=== PATIENT | female | born 1960 | race Caucasian/White ===

== ENCOUNTER 2021-08-26 14:33 | Outpatient (RCR) | payer BC, SELFPAY | END 2021-09-20 23:59 | disposition home or self-care (01) | LOC: CCIC 14:33 | PROVIDERS: PCP Physician Assistant Medical; Visit Provider Internal Medicine Hematology & Oncology | DX: C50.911 Malignant neoplasm of unspecified site of right female breast (principal); Z17.0 Estrogen receptor positive status [ER+]; Z87.891 Personal history of nicotine dependence | CPT/HCPCS: 99212; 99214; 99215 ==

== ENCOUNTER 2022-04-09 11:00 | Outpatient (RCR) | payer BC, SELFPAY | END 2022-09-09 23:59 | disposition home or self-care (01) | PROVIDERS: PCP Physician Assistant Medical; Visit Provider Family Medicine | DX: M85.80 Other specified disorders of bone density and structure, unspecified site (principal); Z51.89 Encounter for other specified aftercare | CPT/HCPCS: 97033; 97035; 97140; 97165; L3913 ==

== ENCOUNTER 2022-05-13 11:30 | Outpatient (RCR) | payer BC, SELFPAY ==
--- NOTE | 2022-01-13 14:43 | URNOTE ---
Received request for prior authorization for Zoledronic Acid (J3489). Per automated messeage at [facility], prior authorization is not required. Confirmation #[id number]
--- NOTE | 2022-01-18 11:25 | ONC.NURNOTE ---
Note in Dr. Mcginnis's folder to clarify if pt to receive Reclast or Zometa. Reclast discussed in her visit note; orders in for Zometa. Dental clearance has been obtained; pt sched 01/21.
[2022-01-21 11:34] LABS: Creatinine* 0.7 mg/dL (0.5-1.5); Estimated Glomerular Filt Rate 97 ml/min
[2022-01-21 11:35] LABS: Calcium* 9.6 mg/dL (8.4-10.6)
[2022-01-21 11:49] VITALS: BP 127/75; PULSE 92; RESP 16; TEMP 36.8; O2SAT 96
[2022-01-21] MEDS: ZOLEDRONIC ACID 4 MG in 0.9 % SODIUM CHLORIDE 100 ml 100 ML 420 MG IVPB (12:08)
--- NOTE | 2022-06-03 11:45 | URNOTE ---
Request received for authorization for Zoledronic Acid (Zometa) (J3489). Prior authorization is approved from 06/01/2022 to 12/27/2022 from [employer] Ref#[id number], on behalf on [employer].
== END 2022-07-04 23:59 | disposition home or self-care (01) ==
LOC: CCIC 11:30
PROVIDERS: PCP Physician Assistant Medical; Referring Provider Physician Assistant Medical; Visit Provider Internal Medicine Hematology & Oncology
DX: C50.911 Malignant neoplasm of unspecified site of right female breast (principal); Z17.0 Estrogen receptor positive status [ER+]; Z79.811 Long term (current) use of aromatase inhibitors; M85.80 Other specified disorders of bone density and structure, unspecified site; Z87.891 Personal history of nicotine dependence
CPT/HCPCS: 36415; 82310; 82565; 96374; 99212; 99214; J3489

== ENCOUNTER 2022-05-20 12:25 | Outpatient (CLI) | payer BC, SELFPAY | END 2022-05-20 12:26 | disposition home or self-care (01) | PROVIDERS: PCP Physician Assistant Medical; Visit Provider Dermatology | DX: Z79.631 Long term (current) use of antimetabolite agent (principal) | CPT/HCPCS: 80053 ==

== ENCOUNTER 2022-05-25 11:15 | Outpatient (RCR) | payer BC, SELFPAY ==
--- OUTSIDE RECORDS SUMMARY | 2021-08-14 09:48 | XMS_ITS | Continuity of Care Document ---
:1960 Author Allergies, Adverse Reactions, Alerts No known allergies Social History Smoking Status Status Start Date End Date Date of Observat ion Ex-smoker (finding) June 02, 2021 7:59am Additional Data Assigned Sex Female Problems Active Problems Medical Problem Onset Date Status Encounter for preoperative Active screening laboratory testing for COVID-19 virus Medications Medication Status Dose Units Route Directions Qty Days Start End Ins tructions Date Date Acetaminophen Active 1-2 TAB PO Every 6 15 June /Hydrocodone Hours as Bitart needed 2021 (Hydrocodone- 12:37pm Acetaminophen ) 5 Mg/325 Mg TAB Cephalexin Active 500 MG PO Four Times 7 Daily Diphenhydrami Active 0 PO Bedtime 1 ne Hcl (Sleep) (Benadryl) 25 Mg TAB Fluocinonide Active 1 NICK TOP Twice A Day 60 Ketoconazole Active 2 % EX (Topical) (Nizoral A-D) 1 % SHA Lactobacillus Active 1 TABLET PO Multiple Active 1 TAB PO Vitamin (Multi Vitamin) 1 Tab TAB Simvastatin Active 10 MG PO Bedtime 30 (Zocor) 10 Mg TAB Triamterene/H Active 1 CAP PO Daily 30 ctz Covid-19 Disconti 30 MCG IM Once 1 Decem[facility] (Sars-Cov-2) nued r , er Mrna Vir 2020 11, (Pfizer-Biont 1:01pm 2020 ech Covid-19) 1:02pm 30 Mcg/0.3 Ml INJ Immunizations Immunization Event Date Not Given Dose Client Application Support Engineer Lot Vac cine Reason Number Number Informatio n Statement (VIS) Deta il COVID-19 Moderna June 04, 2020 COVID-19 Moderna July 02, 2020 COVID-19 Pfizer January 21 PFIZER-BIO [id number] 2020 Influenza October 222020 [facility] Peds November [id number] Shingrix March 282019 Shingrix September 262019 Tdap March 04 (adolescent/adul 2010 t) Advance Directives Advance Directive Response Recorded Date/Time Has patient completed a No June 02, 2021 7:59am Health Care Directive? Insurance Providers Guarantor Mis Luevano Address [address] [phone] Contact Info. Home Phone: Payer Policy Id Coverage Id Subscriber's Subscriber Id Effective E xpiration Name Date Date Frederic [id number] Donovan Luevano [id number]
== END 2022-05-25 12:11 | disposition home or self-care (01) ==
PROVIDERS: PCP Physician Assistant Medical; Visit Provider Surgery
DX: I89.0 Lymphedema, not elsewhere classified (principal); Z51.89 Encounter for other specified aftercare
CPT/HCPCS: 97530

== ENCOUNTER 2022-09-29 11:00 | Outpatient (RCR) | payer BC, MEDICARE, SELFPAY ==
[2022-07-22 11:08] LABS: Calcium* 9.8 mg/dL (8.4-10.6); Creatinine* 0.7 mg/dL (0.5-1.5); Est. Creatinine Clearance* 40.82; Estimated Glomerular Filt Rate 97 ml/min
[2022-07-22] MEDS: ZOLEDRONIC ACID 4 MG in 0.9 % SODIUM CHLORIDE 100 ml 100 ML 420 MG IVPB (11:58)
--- NOTE | 2023-01-17 13:23 | URNOTE ---
Per Availity, prior auth is not required for Zoledronic Acid (J3489).
== END 2023-01-18 23:59 | disposition home or self-care (01) ==
LOC: CCIC 11:00
PROVIDERS: PCP Physician Assistant Medical; Referring Provider Physician Assistant Medical; Visit Provider Internal Medicine Hematology & Oncology
DX: C50.911 Malignant neoplasm of unspecified site of right female breast (principal); Z17.0 Estrogen receptor positive status [ER+]; Z79.811 Long term (current) use of aromatase inhibitors; M85.80 Other specified disorders of bone density and structure, unspecified site; Z87.891 Personal history of nicotine dependence
CPT/HCPCS: 36415; 82310; 82565; 96374; 99212; 99214; J3489

== ENCOUNTER 2022-12-24 12:30 | Outpatient (RCR) | payer BC, MEDICARE, SELFPAY ==
--- NOTE | 2022-12-21 14:51 | ONC.NURNOTE ---
Pt called reporting her brain fog has cleared completely since going off of Anastrazole. She is planning to stay off of it, will be out of town these next 2 weeks, then RTC 01/19 to discuss other AI options with Ras. Offered pt to move up appt earlier to 01/10 to see PA; she would like to keep the original appt d/t her trip, holidays and her having other appts scheduled around that.
== END 2023-04-23 23:59 | disposition home or self-care (01) ==
PROVIDERS: PCP Physician Assistant Medical; Visit Provider Physician Assistant Medical
DX: M53.3 Sacrococcygeal disorders, not elsewhere classified (principal); Z51.89 Encounter for other specified aftercare
CPT/HCPCS: 97110; 97140; 97162

== ENCOUNTER 2023-07-14 15:06 | Outpatient (RCR) | payer MEDICARE, SELFPAY ==
[2023-01-20 10:39] LABS: Creatinine* 0.8 mg/dL (0.5-1.5); Est. Creatinine Clearance* 45.74; Estimated Glomerular Filt Rate 82 ml/min
[2023-01-20 10:40] LABS: Calcium* 10.5 mg/dL (8.4-10.6)
[2023-01-20] MEDS: ZOLEDRONIC ACID 4 MG in 0.9 % SODIUM CHLORIDE 100 ml 100 ML 420 MG IVPB (11:45)
[2023-01-20] MEDS: 0.9 % SODIUM CHLORIDE 250 ml IV (11:57)
[2023-01-20] MEDS: SODIUM CHLORIDE 0.9 % (FLUSH) 10 ML SYRINGE IVF (11:57)
--- NOTE | 2023-01-26 14:09 | ONC.NURNOTE ---
Addendum entered by Doretha Rodríguez 02/03/23 15:46: Call to patient in follow up to her question. Patient informed that there is nothing specific she can take or do to replace endocrine therapy but we do recommend she continue general breast cancer risk reduction guidelines, including but not limited to: eating fruits and vegetables, avoiding processed foods/meats, eating tree nuts, maintaining a normal BMI and moving your body every day for 30 minutes. I stressed the importance of close follow up with oncology for breast exams and keeping up on her mammograms. Patient verbalizes understanding. Original Note: Pt called to let Jenelle Billingsley PA-C know she is opting not to begin Exemestane. She discusses the brain fog and numerous side effects on AI's to this point (~3 1/2 years) and wants to stop AI/Tamoxifen, feeling the lowering off quality of life is not worth it anymore. She asks if any specific supplements or diet changes she should choose instead. Nsg to review with Jenelle Billingsley PA-C at next clinic.
--- NOTE | 2023-02-02 10:59 | PC.NURSE ---
Pt called today to report that her LEFT arm is sore ~2 weeks s/p labs and IV infusion of Zometa. Piper states that her labs were done in the LEFT AC and the IV was in the LEFT forearm and that since that day her whole arm has been aching. Pt has not used ice/heat and she has not used any Tylenol or Ibuprofen. She states that it doesn't hurt really bad and that it's not constant but that if she moves it in certain ways it will ache. RN advised pt to try using ibuprofen for a few days and heat as tolerated. If the pain persists she will call her [facility] PCP to be evaluated.
[2023-06-09 11:43] LABS: Albumin* 4.5 g/dL (3.3-5.0); Chloride* 105 mmol/L (96-114); Potassium* 3.5 mmol/L (3.6-5.1); Sodium* 140 mmol/L (135-149)
[2023-06-09 11:45] LABS: Creatinine* 0.8 mg/dL (0.5-1.5); Est. Creatinine Clearance* 46.31; Estimated Glomerular Filt Rate 82 ml/min
[2023-06-09 11:46] LABS: Alanine Aminotransferase* 30 U/L (4-35); Alkaline Phosphatase* 73 U/L (40-150); Anion Gap 4 mEq/L (7-15); Aspartate Amino Transferase* 31 U/L (12-35); Bilirubin Total* 0.5 mg/dL (0.1-1.5); Blood Urea Nitrogen* 15 mg/dL (7-30); Carbon Dioxide* 31 mmol/L (20-32); Glucose* 104 mg/dL (60-115); Total Protein* 7.8 g/dL (6.0-8.3)
[2023-06-09 11:47] LABS: Calcium* 9.5 mg/dL (8.4-10.6)
[2023-07-14 15:34] LABS: Creatinine* 0.7 mg/dL (0.5-1.5); Est. Creatinine Clearance* 46.31; Estimated Glomerular Filt Rate 96 ml/min
== END 2023-07-19 23:59 | disposition home or self-care (01) ==
LOC: CCIC 15:06
PROVIDERS: Internal Medicine Hematology & Oncology; PCP Physician Assistant Medical; Referring Provider Physician Assistant Medical; Visit Provider Physician Assistant
DX: C50.911 Malignant neoplasm of unspecified site of right female breast (principal); M85.80 Other specified disorders of bone density and structure, unspecified site; R79.89 Other specified abnormal findings of blood chemistry; Z17.0 Estrogen receptor positive status [ER+]
CPT/HCPCS: 36415; 80053; 82310; 82565; 96374; 99212; 99214; G0463; J3489; J7050

== ENCOUNTER 2023-12-01 11:10 | Outpatient (RCR) | payer MEDICARE, SELFPAY ==
[2023-07-20 11:06] VITALS: BP 111/67; PULSE 80; RESP 17; TEMP 36.9; O2SAT 96
[2023-07-20] MEDS: ZOLEDRONIC ACID 4 MG in 0.9 % SODIUM CHLORIDE 100 ml 100 ML 420 MG IVPB (11:33)
[2023-07-20] MEDS: 0.9 % SODIUM CHLORIDE 250 ml IV (11:38)
[2023-07-20] MEDS: SODIUM CHLORIDE 0.9 % (FLUSH) 10 ML SYRINGE IVF (11:38)
== END 2024-01-16 23:59 | disposition home or self-care (01) ==
LOC: CCIC 11:10
PROVIDERS: PCP Physician Assistant Medical; Referring Provider Physician Assistant Medical; Visit Provider Physician Assistant
DX: C50.911 Malignant neoplasm of unspecified site of right female breast (principal); Z17.0 Estrogen receptor positive status [ER+]; M85.80 Other specified disorders of bone density and structure, unspecified site; Z87.891 Personal history of nicotine dependence
CPT/HCPCS: 96374; 99213; G0463; J3489; J7050

== ENCOUNTER 2024-01-23 11:00 | Outpatient (RCR) | payer MEDICARE, SELFPAY ==
[2024-01-17 11:10] LABS: Creatinine* 0.7 mg/dL (0.5-1.5); Estimated Glomerular Filt Rate 95 ml/min
--- NOTE | 2024-01-18 09:58 | URNOTE ---
Per Availity, prior authorization is not required for Zoledronic Acid (J3489).
--- NOTE | 2024-01-23 08:46 | ONC.PROVNOTE ---
[facility] Provider Note Clinic Note Narrative: Zometa treatment plan Ms. Luevano follows at our clinic for medical management of hormone receptor + breast cancer. She self continued aromatase inhibitor 12/13 due to side effects. Osteopenia. Zometa q 6 months for 3 years, due for dose #5 today. I have reentered the new zometa treatment plan for dose #5 and #6, reflecting the dosing criteria and protocol. By cockcroft-gault via MD+calc: Female Age 64 Weight 53.2kg Creatinine 0.7 mg/dL 01/17/24 Estimated creatinine clearance of 66 ml/min Zometa dose 4mg IVPB.
[2024-01-23 11:02] VITALS: BP 109/70; PULSE 61; RESP 16; TEMP 35.8; O2SAT 95
[2024-01-23] MEDS: ZOLEDRONIC ACID 4 MG in 0.9 % SODIUM CHLORIDE 100 ml 100 ML 400 MG IVPB (11:27)
--- NOTE | 2024-06-20 10:51 | ONC.NURNOTE ---
Patient called to schedule her six month follow up. She has not scheduled her mammogram, as she just had shoulder surgery seven weeks ago. Appointments pushed out to 08/06, she will call if unable to obtain mammogram by this time.
== END 2024-07-15 23:59 | disposition home or self-care (01) ==
LOC: CCIC 11:00
PROVIDERS: Physician Assistant; PCP Physician Assistant Medical; Referring Provider Physician Assistant Medical; Visit Provider Clinical Nurse Specialist
DX: C50.911 Malignant neoplasm of unspecified site of right female breast (principal); Z17.0 Estrogen receptor positive status [ER+]; M85.80 Other specified disorders of bone density and structure, unspecified site; Z79.811 Long term (current) use of aromatase inhibitors
CPT/HCPCS: 36415; 82310; 82565; 96365; 96374; J3489

== ENCOUNTER 2024-08-20 13:00 | Outpatient (RCR) | payer MEDICARE, SELFPAY | END 2024-12-18 23:59 | disposition home or self-care (01) | PROVIDERS: PCP Physician Assistant Medical; Visit Provider Orthopaedic Surgery | DX: Z48.89 Encounter for other specified surgical aftercare (principal); M25.511 Pain in right shoulder; Z51.89 Encounter for other specified aftercare | CPT/HCPCS: 97110; 97140; 97161 ==

== ENCOUNTER 2024-10-29 10:00 | Outpatient (RCR) | payer MEDICARE, SELFPAY ==
[2024-08-06 10:25] LABS: Creatinine* 0.9 mg/dL (0.5-1.5); Est. Creatinine Clearance* 44.64; Estimated Glomerular Filt Rate 71 ml/min
[2024-08-06 10:26] LABS: Calcium* 9.5 mg/dL (8.4-10.6)
[2024-08-06] MEDS: ZOLEDRONIC ACID 4 MG in 0.9 % SODIUM CHLORIDE 100 ml 100 ML 420 MG IVPB (11:06)
== END 2025-02-02 23:59 | disposition home or self-care (01) ==
LOC: CCIC 10:00
PROVIDERS: Clinical Nurse Specialist; PCP Physician Assistant Medical; Referring Provider Physician Assistant Medical; Visit Provider Internal Medicine Hematology & Oncology
DX: C50.911 Malignant neoplasm of unspecified site of right female breast (principal); Z17.0 Estrogen receptor positive status [ER+]; M85.80 Other specified disorders of bone density and structure, unspecified site; Z87.891 Personal history of nicotine dependence
CPT/HCPCS: 36415; 82310; 82565; 96365; 99214; G0463; J3489

== ENCOUNTER 2024-12-05 14:00 | Outpatient (CLI) | payer MEDICARE, SELFPAY ==
--- NOTE | 2024-12-05 14:00 | CRLHL7_ITS ---
For Patients: As a result of the Century Cures Act, medical imaging exams and procedure reports are released immediately into your electronic medical record. You may view this report before your referring provider. If you have questions, please contact your health care provider. XR DXA BONE MINERAL DENSITY (BMD) Current height (in): 59.0. Weight (lb): 106.0. Menopause age: 28. Ethnicity: White. Reason for exam: Malignant neoplasm of unspecified site 1. Have you had a previous hip or vertebral fracture? No. 2. Have you had any fractures during your adult life which did not result from significant trauma (e.g., auto accident)? No. 3. Did either of your parents have a hip fracture? Yes. 4. Do you smoke? No. 5. Have you ever taken Glucocorticoids? No. 6. Do you have rheumatoid arthritis? No. 7. Do you have secondary osteoporosis? No. 8. Do you drink 3 or more alcoholic drinks per day? No. 9. Are you being treated for osteoporosis? No. 10. Have you ever taken any of the following medications: Actonel, Evista, Fosamax, Miacalcin, Reclast, Boniva, Forteo, HRT (i.e. estrogen/hormone therapy), Protelos, Prolia, Vitamin D, Calcium, other ??? please specify. ANSWER: Yes, vitamin D, HRT, calcium, One A Day vitamins. 11. Do you have any of the following medical conditions: Anorexia or bulimia, asthma or emphysema, end stage renal disease, hyperparathyroidism, any seizure disorders, cancer, inflammatory bowel diseases, hysterectomy, other ??? please specify. ANSWER: Yes, cancer. 12. What was your maximum height (inches)? 59.7. 13. Do you perform weight bearing exercise regularly? No. 14. Do you regularly consume dairy products? Yes. 15. Do you drink caffeinated beverages? Yes. 16. At what age did your period start? 10. 17. Are you premenopausal? No. 18. How many full-term pregnancies have you had? 0. 19. Have you ever missed your period for more than 6 months in a row (not including or menopause)? Yes. TECHNIQUE: Bone mineral density study was performed using the [employer]. FINDINGS: The results of the study expressed as bone mineral density (BMD) are as follows: Lumbar spine L1 to L4: BMD: 0.980 g/cm2. T-score: -0.6. Z-score: 1.3 Neck Left: BMD: 0.563 g/cm2. T-score: -2.6. Z-score: -1.0 Right: BMD: 0.581 g/cm2. T-score: -2.4. Z-score: -0.8 Total Left: BMD: 0.815 g/cm2. T-score: -1.0. Z-score: 0.3 Right: BMD: 0.818 g/cm2. T-score: -1.0. Z-score: 0.3 IMPRESSION: Osteoporosis. *Comparison exams done prior to 07/2019 were performed on different unit, NCR. COMPARISON: Compared with scan of 07/09/2021, the bone mineral density has increased by 3.8 percent at the spine and increased by 6.2 percent at the hip. Laz Burns M.D. Diagnostic Radiologist [email or web address] Transcribed: 10:38 am DW/Dictated by: Laz Burns MD @ 12/10/2024 9:46:00 AM (Electronically Signed)
== END 2024-12-05 14:01 | disposition home or self-care (01) ==
LOC: RAD 14:02
PROVIDERS: PCP Physician Assistant Medical; Visit Provider Internal Medicine Hematology & Oncology
DX: C50.919 Malignant neoplasm of unspecified site of unspecified female breast (principal); M81.0 Age-related osteoporosis without current pathological fracture; N95.9 Unspecified menopausal and perimenopausal disorder
CPT/HCPCS: 77080